=== PATIENT | female | born 1940 | race Caucasian/White ===

== ENCOUNTER → 2023-05-09 20:34 | Outpatient (CLI) | payer MEDICARE, SELFPAY ==
--- NOTE | 2023-05-09 10:45 | DI.RAD_ITS ---
Exam(s) XR FOOT RT COMPLETE EXAM: XR FOOT RT COMPLETE CLINICAL HISTORY: Right foot pain, M79.671. TECHNIQUE: 2D digital imaging was performed. COMPARISON: No exams were available for comparison FINDINGS: 3 views There is generalized age-related osteopenia but no acute fractures. No diastasis of the Lisfranc thais nt. There is prominent hallux valgus noted. Minimal degenerative changes in the great toe metatarso phalangeal joint. There are significant degenerative changes in most of the tarsometatarsal joints, including the 4th and 5th (with the cuboid). No obvious degenerative changes in the hindfoot Chopart joints. No inferior calcaneal spur. Vascular calcification noted in the foot proximally and distal ly. No evidence of osteomyelitis. There is some degenerative narrowing of the metatarsophalangeal j oint of the 2nd toe. IMPRESSION: Prominent hallux valgus. Also CIS moderate narrowing of the 2nd metatarsophalangeal joint. Also deg enerative change in the tarsometatarsal joints noted. DATA REPOSITORY: RADIATION DOSE DELIVERED:
== END ==
PROVIDERS: PCP Family Medicine; Visit Provider Podiatrist
DX: M19.071 Primary osteoarthritis, right ankle and foot (principal); M20.11 Hallux valgus (acquired), right foot
CPT/HCPCS: 73630

== ENCOUNTER → 2023-06-03 00:22 | Outpatient (CLI) | payer MEDICARE, SELFPAY ==
--- NOTE | 2023-06-03 08:25 | DI.MRI_ITS ---
Exam(s) MR LOWER EXTREMITY RT WO EXAM: MR LOWER EXTREMITY RT WO CLINICAL HISTORY: 4th interspace tunneling wound, dog nail in wound,FOREIGN BODY,S90.851A, TECHNIQUE: Multiplanar multisequence MRI was performed. COMPARISON: CR XR FOOT RT COMPLETE from 05/09/2023 FINDINGS: Densities are degraded by motion artifact. SKIN/SUBCUTANEOUS: There is no obvious skin ulcer. No obvious subcutaneous tract. MARROW:There is a semi lunar focus of signal abnormality in the head-neck junction of the 5th metatar ana. No T1 ghosting evident at this level. Appearance may be more that of a subtle fracture at this level than osteomyelitis. There is no signal abnormality more proximally in the 5th metatarsal nor in the phalanges of the 5th toe. Also no signal abnormality in the metatarsal and phalanges of the a djacent 4th toe nor in the other toes.. MUSCLES/TENDONS: There is no evidence of abnormal signal nor mass in the visualized muscles.No tenosy novitis. EXTRAMUSCULAR SOFT TISSUES: No evidence of Henderson's interdigital neuroma. OTHER: Valgus noted. Although there is some bright signal in the most medial aspect of the hallux va lgus, this is on a PD fat sat sequence and I suspect that this is related to inadequate fat suppressi on at this level. There is no evidence of hypointense marrow signal on T1 to suggest osteomyelitis a t this level. IMPRESSION: 1. There is an small area of semi lunar signal abnormality in the head-neck junction of the 5th metat arsal. Suspect that this may represent subtle fracture; less likely osteomyelitis. I recommend a re peat set of plain films which I feel would add specificity. I note that the last set of plain films was 1 month ago. DATA REPOSITORY:
== END ==
PROVIDERS: PCP Family Medicine; Visit Provider Podiatrist
DX: S92.354A Nondisplaced fracture of fifth metatarsal bone, right foot, initial encounter for closed fracture (principal); X58.XXXA Exposure to other specified factors, initial encounter
CPT/HCPCS: 73718

== ENCOUNTER → 2023-06-08 10:56 | Outpatient (BNVA) | payer MEDICARE, SELFPAY | PROVIDERS: PCP Family Medicine; Referring Provider Family Medicine; Visit Provider Podiatrist | DX: L03.90 Cellulitis, unspecified (principal); L08.9 Local infection of the skin and subcutaneous tissue, unspecified; I70.209 Unspecified atherosclerosis of native arteries of extremities, unspecified extremity; N18.4 Chronic kidney disease, stage 4 (severe); S90.851A Superficial foreign body, right foot, initial encounter; X58.XXXA Exposure to other specified factors, initial encounter | CPT/HCPCS: 99213 ==

== ENCOUNTER 2023-06-08 12:35 | Outpatient (REF) | payer MEDICARE, SELFPAY | END 2023-06-08 12:36 | disposition home or self-care (01) | LOC: LBN 12:35 | PROVIDERS: PCP Family Medicine; Visit Provider Podiatrist | DX: S90.851D Superficial foreign body, right foot, subsequent encounter; B96.4 Proteus (mirabilis) (morganii) as the cause of diseases classified elsewhere; X58.XXXD Exposure to other specified factors, subsequent encounter | CPT/HCPCS: 87077; 87070; 87075; 87186; 87205 ==